=== PATIENT | female | born 1950 | race Caucasian/White ===

== ENCOUNTER 2023-11-29 10:31 | Observation (INO) | payer OTHER ==
[2023-11-26 10:19] LABS: Absolute Eosinophils 0.2 K/uL (0-0.5); Absolute Monocytes 0.4 K/uL (0.1-1.3); Absolute Neutrophil 3.9 K/uL (1.8-8.0); Basophils % 0.6 % (0-1.3); Eosinophils % 2.8 % (0-4.4); Hematocrit 46.3 % (36.0-45.0); Hemoglobin 15.1 g/dL (12.0-15.0); Lymphocytes % 30.8 % (15.3-44.8); MCH 29.6 pg (27.0-35.0); MCHC 32.6 g/dL (32.0-36.0); MCV 90.7 fL (80-100); MPV 7.8 fL (7.6-11.3); Monocytes % 6.7 % (3.3-12.3); Neutrophils % 59.1 % (41.7-73.7); Platelets 245 thou/uL (152-406); Red Cell Distribution Width 13.4 % (12.1-15.2)
[2023-11-26 10:22] LABS: Specific Gravity 1.019 (1.005-1.030); Urine Bacteria None Seen /HPF (<20); Urine Bilirubin NEGATIVE (Negative); Urine Blood Negative (Negative); Urine Clarity Extremely Turbid (Clear); Urine Color Yellow (Yellow); Urine Culture Reflex Order REFLEXED; Urine Glucose TRACE (Negative); Urine Ketones 1+ (Negative); Urine Microscopic Reflex YN ORDER UMIC; Urine Nitrite NEGATIVE (Negative); Urine Protein 1+ (Negative); Urine RBC <5 /HPF (None Seen); Urine Urobilinogen Normal (Normal); Urine pH 5.5 (5.0-7.0)
[2023-11-26 10:29] LABS: PT Prothrombin Time 10.8 SECONDS (9.4-12.5); PTT, Activated Partial Thromb 32.6 SECONDS (24.3-36.9); Protime INR 0.96
[2023-11-26 10:37] LABS: Anion Gap 11.5 mEq/L (5.0-15.0); Potassium 3.5 mEq/L (3.5-5.1)
--- NOTE | 2023-11-27 12:54 | EKG ---
Test Date: 2023-11-26 Test Time: 08:43:58 Clinical Documentation Specialist: GILBERT MEASUREMENT RESULTS: Intervals: Rate: 56 MD: 128 QRSD: 80 QT: 456 QTc: 440 [place]: P: 56 MD: 128 QRS: 43 T: 63 INTERPRETIVE STATEMENTS: Sinus bradycardia Otherwise normal ECG Compared to ECG 08/05/2001 12:01:00 No significant changes Electronically Signed On 11-27-23 12:50:36 CDT by Jj Bartlett
[2023-11-29] MEDS: NA CHLORIDE 0.9% 1,000 ML ONE (10:30)
[2023-11-29] MEDS: SCOPOLAMINE HYDROBROMIDE PATCH TD ONE (11:15)
[2023-11-29] MEDS ORDERED: dexAMETHasone 10 MG/ML VIAL ONE (14:53)
[2023-11-29] MEDS ORDERED: FENTANYL CITR 100 MCG/2 ML ONE (14:53)
[2023-11-29] MEDS ORDERED: ONDANSETRON 4 MG/2 ML VIAL ONE (14:53)
[2023-11-29] MEDS ORDERED: MIDAZOLAM HCL 2 MG/2 ML INJ ONE (14:53)
[2023-11-29] MEDS ORDERED: ROCURONIUM 50 MG/5 ML VIAL IV ONE (14:53)
[2023-11-29] MEDS ORDERED: LIDOCAINE 1% MPF 5 ML VIAL ONE (14:53)
[2023-11-29] MEDS ORDERED: propofoL 200 MG/20 ML VIAL IV ONE ×2 (14:53→17:59)
[2023-11-29] MEDS: propofoL 1,000 MG/100 ML VIAL IV ONE (14:59)
[2023-11-29] MEDS: NA CHLORIDE 0.9% 100 ML ONE (15:37)
[2023-11-29] MEDS: CEFAZOLIN SODIUM 1 GM/VIAL ONE (15:37)
[2023-11-29] MEDS: CEFAZOLIN SODIUM 2 GM/VIAL ONE (16:00)
[2023-11-29] MEDS: VASOPRESSIN 20 UNIT/ML VIAL ONE (16:35)
[2023-11-29] MEDS: Ringers Lactate 1,000 ML IV ONE ×2 (17:20→18:32)
[2023-11-29] MEDS ORDERED: KETOROLAC 30 MG/ML INJ ONE (18:09)
[2023-11-29] MEDS ORDERED: ACETAMINOPHEN 500 MG TAB PO PRN ×2 (18:20→18:47)
[2023-11-29] MEDS ORDERED: IBUPROFEN 200 MG TAB PO PRN (18:20)
[2023-11-29] MEDS ORDERED: PROMETHAZINE 25 MG TABLET PO PRN ×2 (18:20→18:48)
[2023-11-29] MEDS ORDERED: MORPHINE 2 MG/ML SYR IV PRN (18:20)
--- OUTSIDE RECORDS SUMMARY | 2023-11-29 18:50 | XMS REPORT | Continuity of Care Document ---
Author Name Unknown Address [address] [facility] [address] th[address] Address [address] [facility] 1 [address] [place] [address] Care Team Providers Care Site Leader Name Role Phone GC_GCBZW_Kadiyala_S Attending Clinician Unavaila ble GC_GCBZW_Kadiyala_S Admitting Clinician Unavaila ble Problems Condition Name Condition Details Condition Category Status Onset Date Resolution Date Last Treatment Date Treating Clinician Comments Source Dysuria Dysuria Problem Active 2023-02 0-15 00:00: 00 [facility] Female stress incontinen ce Female Stress Incontinen ce Problem Active 8-27 00:00: 00 [facility] Urge incontinen ce of urine Urge Incontinen ce of Urine Problem Active 7-16 00:00: 00 [facility] Well controlled type 2 diabetes mellitus Well Controlled Type 2 Diabetes Mellitus Problem Active 7-16 00:00: 00 [facility] Glaucoma Glaucoma Problem Active 7-16 00:00: 00 [facility] Hypertensi ve disorder Hypertensi ve Disorder Problem Active 7-16 00:00: 00 [facility] Anterior vaginal wall prolapse Anterior Vaginal Wall Prolapse Problem Active 7-16 00:00: 00 [facility] Prolapse of vaginal vault after hysterecto my Prolapse of Vaginal Vault after Hysterecto my Problem Active 7-16 00:00: 00 [facility] Atrophic vaginitis Atrophic Vaginitis Problem Active 3-30 00:00: 00 [facility] Lateral cystocele Lateral Cystocele Problem Active 3-30 00:00: 00 [facility] Cyst of vulva Cyst of Vulva Problem Active 3-30 00:00: 00 [facility] Social History Smoking Status Start Date Stop Date Source Never Smoker [facility] Medications Ordered Medication Name Filled Medication Name Start Date Stop Date Current Medication? Ordering Clinician Indication Dosage Frequency Signature (SIG) Comments Components Source nitrofurant oin monohydrate /macrocryst als 100 mg capsule Take 1 capsule every 12 hours by oral route for 7 days. nitrofurant oin monohydrate /macrocryst als 100 mg capsule Take 1 capsule every 12 hours by oral route for 7 days. No 1capsul e(s) Q12H nitrofuran toin monohydrat e/macrocry stals 100 mg capsule Take 1 capsule every 12 hours by oral route for 7 days. [facility] amlodipine 5 mg tablet 1 tablet; Once a day amlodipine 5 mg tablet 1 tablet; Once a day No amlodipine 5 mg tablet 1 tablet; Once a day [facility] glipizide 5 mg-metformi n 500 mg tablet 1 tablet with a meal; Once a day glipizide 5 mg-metformi n 500 mg tablet 1 tablet with a meal; Once a day No glipizide 5 mg-metform in 500 mg tablet 1 tablet with a meal; Once a day [facility] Lumigan 0.01 % eye drops 1 drop into affected eye in the evening; Once a day Lumigan 0.01 % eye drops 1 drop into affected eye in the evening; Once a day No Lumigan 0.01 % eye drops 1 drop into affected eye in the evening; Once a day [facility] meloxicam 15 mg tablet 1 tablet; Once a day meloxicam 15 mg tablet 1 tablet; Once a day No meloxicam 15 mg tablet 1 tablet; Once a day [facility] metoprolol tartrate 25 mg tablet as directed; Twice a day metoprolol tartrate 25 mg tablet as directed; Twice a day No metoprolol tartrate 25 mg tablet as directed; Twice a day [facility] omeprazole 40 mg capsule,del ayed release as directed; Once a day omeprazole 40 mg capsule,del ayed release as directed; Once a day No omeprazole 40 mg capsule,de layed release as directed; Once a day [facility] OneTouch Verio test strips as directed OneTouch Verio test strips as directed No OneTouch Verio test strips as directed [facility] rosuvastati n 20 mg tablet 1 tablet; Once a day rosuvastati n 20 mg tablet 1 tablet; Once a day No rosuvastat in 20 mg tablet 1 tablet; Once a day [facility] tramadol 50 mg tablet 1 tablet as needed; Once a day tramadol 50 mg tablet 1 tablet as needed; Once a day No tramadol 50 mg tablet 1 tablet as needed; Once a day [facility] estradiol 0.01% (0.1 mg/gram) vaginal cream (0.5 gm) as directed with applicator; three times a week. estradiol 0.01% (0.1 mg/gram) vaginal cream (0.5 gm) as directed with applicator; three times a week. No estradiol 0.01% (0.1 mg/gram) vaginal cream (0.5 gm) as directed with applicator ; three times a week. [facility] Hydrocodone Hydrocodone No Hy drocodon e [facility] Vital Signs Vital Name Observation Time Observation Value Comments S ource Height 2023-11-14 00:00:00 68 [in_i] [facility] BMI (Body Mass Index) 2023-11-14 00:00:00 25.2 kg/m2 [facility] BP Diastolic 2023-11-14 00:00:00 73 mm[Hg] [facility] BP Systolic 2023-11-14 00:00:00 134 mm[Hg] [facility] Body Weight 2023-11-14 00:00:00 165.8 [lb_av] [facility] Height 2023-10-02 00:00:00 68 [in_i] [facility] Height 2023-09-05 00:00:00 68 [in_i] [facility] Body Weight 2023-09-05 00:00:00 166.8 [lb_av] [facility] BMI (Body Mass Index) 2023-09-05 00:00:00 25.4 kg/m2 [facility] BP Systolic 2023-09-05 00:00:00 166 mm[Hg] [facility] BP Diastolic 2023-09-05 00:00:00 92 mm[Hg] [facility] Body Weight 2023-08-21 00:00:00 166.8 [lb_av] [facility] BMI (Body Mass Index) 2023-08-21 00:00:00 25.4 kg/m2 [facility] Height 2023-08-21 00:00:00 68 [in_i] [facility] BP Diastolic 2023-08-21 00:00:00 71 mm[Hg] [facility] BP Systolic 2023-08-21 00:00:00 120 mm[Hg] [facility] Procedures Procedure Date / Time Performed Performing Clinicia n Source Cystoscopy 2023-09-28 00:00:00 [facility] US TRANSVAGINAL 2023-08-30 00:00:00 [facility] Hysterectomy 1986-02-05 00:00:00 [facility] En[facility] Start Date/Time End Date/Time Encounter Type Admission Type Attending [facility] Care Facility Care Department Encounter ID Source 2023-11-20 00:00:00 2023-11-20 00:00:00 KEY Do: [address], [address], [place] [address] , Ph. [facility] GC_GCBZW_Vero Tapia* [id number] [facility] 2023-11-15 00:00:00 2023-11-15 00:00:00 KEY Do: [address], [address], [place] [id number] , Ph. [facility] GC_GCBZW_Vero Tapia* [id number] [facility] 2023-11-14 00:00:00 2023-11-14 00:00:00 Marga Gomez MD: [address], [address], [place] [id number] , Ph. [facility] GC_GCBZW_[facility]ero [facility]* [id number] [facility] 2023-11-08 00:00:00 2023-11-08 00:00:00 KEY Do: [address], [address], [place] [id number] , Ph. [facility] GC_GCBZW_Vero Tapia* [id number] [facility] 2023-10-29 00:00:00 2023-10-29 00:00:00 KEY Do: [address], [address], [place] [address] , Ph. Critical access hospital - GC_GC[facility]* [id number] [facility] 2023-10-22 00:00:00 2023-10-22 00:00:00 KEY Do: [address], [address], [place] [address] , Ph. Critical access hospital - [facility]* [id number] [facility] 2023-10-02 00:00:00 2023-10-02 00:00:00 Marga Gomez MD: [address], [address], [place] [phone] , Ph. Critical access hospital - GC_GCBZW_[facility]* [id number] [facility] 2023-09-28 00:00:00 2023-09-28 00:00:00 Marga Gomez MD: [address], [address], [place] [address] , Ph. Critical access hospital - GC[facility]GCBZW_[facility]* [id number] [facility] 2023-09-05 00:00:00 2023-09-05 00:00:00 RONA Mccarty: [address], [address], [place] [address] , Ph. Critical access hospital - GC[facility]GCBZW_[facility]* [id number] [facility] 2023-08-30 00:00:00 2023-08-30 00:00:00 Marga Gomez MD: [address], [address], [place] [address] , Ph. Critical access hospital - GC_GCBZW_[facility]* [id number] [facility] 2023-08-27 00:00:00 2023-08-27 00:00:00 RONA Mccarty: [address], [address], [place] [address] , Ph. Critical access hospital - GC_GCBZW_[facility]* [id number] [facility] 2023-08-21 00:00:00 2023-08-21 00:00:00 Marga Gomez MD: [address], [address], [place] [address] , Ph. Critical access hospital - GC_GCBZW_[facility]* [id number] [facility] 2022-12-03 00:00:00 2022-12-03 00:00:00 Outpatient GC_GCBZW_Ka asimmatthias_S [facility] [id number] [facility] Results Test Description Test Time Test Comments Results Result Co mments Source [facility], [id number] 13:57:00* Test Item Value Reference Range Interpretation Comme nts Leukocytes (test code = Leukocytes) 1+ Nitrite (test code = Nitrite) negative Urobilinogen (test code = Urobilinogen) Normal Protein (test code = Protein) 1+ pH (test code = pH) 5.5 Blood (test code = Blood) Negative Specific [place] (test code = Specific [place]) 1.030 Ketone (test code = Ketone) Negative Bilirubin (test code = Bilirubin) 1+ Glucose (test code = Glucose) Negative Appearance (test code = Appearance) Slightly Cloudy Color (test code = Color) Yellow [facility]ing residual urine and/or bladder capacity (PROC)2023-08-21 13:56:00* Test Item Value Reference Range Interpretation Comme nts (PVR) (test code = (PVR)) 13 [facility]
[2023-11-29] MEDS: Ringers Lactate 1,000 ML IV SCH (19:00)
[2023-11-29] MEDS ORDERED: Ringers Lactate 1,000 ML IV SCH (19:00)
[2023-11-29] MEDS: FENTANYL CITR 100 MCG/2 ML ONE (19:05)
[2023-11-29] MEDS: CEFAZOLIN 1 GM in NA CHLORIDE 0.9% 100 ML IVPB SCH (19:40)
[2023-11-29] MEDS: IBUPROFEN 600 MG TAB PO PRN (19:49)
[2023-11-29] MEDS: PROMETHAZINE INJ 25 MG/ML AMP IV PRN (20:46)
[2023-11-29] MEDS: MORPHINE 2 MG/ML SYR IV PRN (20:47)
[2023-11-29] MEDS ORDERED: INSULIN REGULAR (HUMAN) 100 UNIT/ML SQ SCH (21:00)
[2023-11-29 21:35] VITALS: BMI 25.2
--- NOTE | 2023-11-30 00:04 | OP ---
Date of Procedure: 11/29/2023 Surgeon: Marga Gomez MD Remote Broadcast Technician: Carlene Garcia. Preoperative Diagnoses: Stage IV recurrent vaginal prolapse, stress urinary incontinence, posterior enterocele, and perineal body defect. Postoperative Diagnoses: Stage IV wall prolapse, anterior and posterior wall defects, posterior ente rocele, perineal body defect, and stress urinary incontinence. Procedures Performed: Complete colpocleisis, distal posterior wall repair, perineorrhaphy, mid ureth ral transobturator sling (TVT-O), cystoscopy. Estimated Blood Loss: 50. Specimens: No specimens. Complications: None. Drains: Soliman catheter. Findings: POP-Q 0, +2, +2, 4.5, moderate, 6.5, +1, +2, and NA. As it was feasible to perform a colp ocleisis, the patient was consented accordingly, proceeded with this. Indications: The patient is a 73-year-old with vaginal complaints of bulge, incomplete voiding, and urinary frequency and urgency. No bowel symptoms. History of GIULIANA, which progressively has become le ss problematic. Not sexually active. She was evaluated with cystoscopy negative for any tumors or s tone disorder, diverticular or anatomical abnormalities. Urodynamic testing showed overactive bladde r as well as GIULIANA. During her office evaluation, her vault seemed to be the least problematic and ant erior wall was the most prominent . On urodynamic testing, there was occult GIULIANA and theref ore we discussed about placing a prophylactic sling. Anterior-posterior repairs with vault suspensio n with sacral spine fixation and use of the biologic graft anteriorly, posteriorly and both, and the posterior perineorrhaphy, and mid urethral sling were discussed. Vaginal length was short enough and introitus large enough to preclude an effective use of pessary, but patient was not interested in th e pessary either. She was very sure of no further interest in vaginal intercourse and so consented f or a possible colpocleisis if feasible. The patient understood the permanency of closure of the vagi na and consented. Description Of Procedure: After reconsenting in the preoperative area, her was present by he r, she was taken to the OR and placed in supine fashion on the operating table. General anesthesia w as then given. She was placed in a dorsal lithotomy position using Akbar stirrups. Lower abdomen, m edial thighs, vulva, vagina, and perineum were prepped and draped in a sterile fashion. Soliman was pl aced to drain the bladder and retracted superiorly. She was found to have a bladder infection recent ly for which she is being treated and the change in antibiotics was made again yesterday to cover the klebsiella. Her most recent urine culture showed greater than 100,000 bacteria, but they were all m ixed tiffanie. In the past, she had Klebsiella and that was intermediate in resistance to Macrobid, but she was treated with that, so at this time as she is having surgery, we proceeded with giving her Le vaquin 750 mg dose yesterday followed by a 500 mg dose once a day for 5 days and we will extend that for another 5 days if needed, and if patient is symptomatic. She was prepped and draped in a sterile fashion. Time-out was done. SCDs were started. Ancef 2 g w as given preoperatively and after positioning was checked, procedure was started. Soliman was placed a nd retracted superiorly. POP-Q was performed and it was very obvious that her vault was significantl y prolapsed as well as her anterior wall. So, proceeded with a colpocleisis. The markings were made in a trapezoid fashion on the anterior and posterior linton, mirror images on b oth sides. Dilute vasopressin was injected in the anterior and posterior linton as well and then with a 15 blade, an incision was made along the perimeter of the marking and once going to the epithelial , subepithelial, and connective tissue, flaps were raised on the periphery. Then, vaginal epithelium was denuded retaining as much of connective tissue as possible and the scar. This was taken down fr om the anterior strip from the anterior wall and then posterior wall, similar dissection was performe d. There was an enterocele that had to be reduced, which was done later with the help of 2-0 Vicryl interrupted sutures. The vaginal epithelial closure at the vault was done in a horizontal fashion bringing the anterior an d posterior linton together from left to right and then the right lateral wall was sutured together wi th a continuous running 2-0 Vicryl. Then, the left lateral wall was sutured from anterior-posterior direction all the way distally from proximal end and then the anterior-posterior linton were approxima mickie together in interrupted [id number] 2-0 Vicryl sutures in 2 layers. Once this was done after the posterior enterocele repair, I was at the distal portion of the epithelial cuts and this was irwin sed with interrupted 5 [id number] sutures with 2-0 Vicryl. Once this was closed, there was exce llent closure. The posterior wall had the defect and the perineal body defect was present. This was marked out in a mat-shaped outline with a marking pen, injected with dilute vasopressin. The lower part of the triangle was on the perineum and the upper portion in the posterior wall touc kerri the colpocleisis. Then, the epithelium was taken out from the perineum as well as the posterior wall. Then, the epithelial flaps were raised on the posterior wall and the connective tissue was di ssected and the defects were exposed. This was a detachment of the distal connective tissue from the perineal body. The perineal body structures were dissected as well. Once all this was laid up and the perineal body was reconstructed with interrupted 2-0 Vicryl [id number] x3 and then continuou s running 2-0 Vicryl suture from the posterior wall connecting it to the perineal body and then recon structing the perineal body all the way down to the same suture. Then, the vaginal epithelium was br ought together with a 3-0 Vicryl suture in a continuous running fashion and at the level of the perin eum, it was closed with subcutaneous continuous running suture and then a subcuticular running suture , knot tied inside the vestibule. Rectal exam showed a good perineal body and no evidence of any tra pavithra to the rectum. The midurethral area was picked up with 2 Allis clamps. 1.5 cm incision was made here in the miduret hral section. There appeared to be a Bruna plication here and so the scar was present. There was no evidence of any mesh after dissecting through the connective tissue to create the tunnels on each si de. The tunnels were created underneath the connective tissue going towards the ipsilateral obturato r space. The 45-degree angle to the horizontal and vertical planes and on the obturator membrane was perforated. The tunnel was extended to fit the mesh. This was performed first right side, then lef t side without any problems. Then, the wing guide was placed and the premade tunnel and sling passed through 45 degree angle hugging the inferior pubic ramus and exiting 2 cm lateral above the level of the external meatus avoiding the adductor longus tendon. The mesh and the plastic sheath s were held with a Bruna and dilator cut on the opposite side. Pass was taken and the exit was sligh tly inferior to the contralateral side, but this appeared to be appropriate without any trauma to the lateral fornices. Then, the mesh was tensioned under the urethra with the Metzenbaum scissors betwe en the urethra and the mesh. The sheaths were pulled out after tensioning appropriately and keeping it loose enough and not too tight. Once this was done, then the mesh was cut flush with the skin at the exit sites and Dermabond was applied to close the skin incisions, then continuous running 3-0 Francisco ryl suture after irrigation with antibiotic solution on the sling was used to close the sling incisio n site full-thickness. Then, carefully the Soliman was removed without spillage of urine and cystoscop y was performed. No evidence of any trauma. Both ureteric orifices were patent. Slight epithelial patchy erythema was present . Soliman was replaced carefully and attached to a drainage bag. Instrument, needle, and sponge counts were correct. EBL was 50. The patient was recovered from an esthesia and taken to PACU in stable condition. She will have a voiding trial tomorrow. Ancef 1 g q .8 hours 2 doses was ordered. She has Levaquin 500 mg as dictated earlier. Follow up in 1 week and if she goes home with a catheter, she will have voiding trial on Sunday. ADÁN/RAJ Voice ID: [id number] Report ID: [id number]
[2023-11-30] MEDS ORDERED: HYDROCODONE/APAP 5/325 MG TAB PO PRN (03:24)
[2023-11-30 04:58] VITALS: TEMP 97.7
[2023-11-30] MEDS: glipiZIDE 5 MG TAB PO SCH (08:08)
[2023-11-30] MEDS: AMLODIPINE 5 MG TAB PO SCH (08:08)
[2023-11-30] MEDS: METOPROLOL TAR 50 MG TAB PO SCH (08:09)
[2023-11-30] MEDS: PANTOPRAZOLE 40MG TABLET PO SCH (08:09)
[2023-11-30] MEDS: METFORMIN HCL 500 MG TAB PO SCH (08:09)
[2023-11-30 08:10] VITALS: BP 119/57
[2023-11-30] MEDS ORDERED: MELOXICAM 7.5 MG TAB PO SCH (09:00)
[2023-11-30] MEDS ORDERED: PANTOPRAZOLE 40MG TABLET PO SCH (09:00)
[2023-11-30 10:59] VITALS: O2SAT 90
== END 2023-11-30 11:07 | disposition home or self-care (01) ==
LOC: OR 10:31 → 4TH 18:30
PROVIDERS: ADMIT Obstetrics & Gynecology; ATTEND Obstetrics & Gynecology
PROC: 0ULG8ZZ Occlusion of Vagina, Via Natural or Artificial Opening Endoscopic (ICD-10-PCS; 2023-11-29)
PROC: 0JQC0ZZ Repair Pelvic Region Subcutaneous Tissue and Fascia, Open Approach (ICD-10-PCS; 2023-11-29)
PROC: 0HQ9XZZ Repair Perineum Skin, External Approach (ICD-10-PCS; 2023-11-29)
PROC: 0TSD0ZZ Reposition Urethra, Open Approach (ICD-10-PCS; principal; 2023-11-29 12:15)
DX: N81.3 Complete uterovaginal prolapse (principal); N39.3 Stress incontinence (female) (male)
CPT/HCPCS: 57288; 57120; 57250; 93005; 87088; 85025; 81001; 87086; 80048; 36415; 86900; 86850; 85610; 86901; 82947 ×2; 85730; 94010; J2550; J2704 ×2; J2003; J2250; J3010 ×2; J1100; J2270; J2405; J7120 ×3; J7030; J0690 ×3; G0378; G0379